=== PATIENT | male | born 1965 | race African-American/Black ===

== ENCOUNTER 2022-05-01 09:07 | Outpatient (CLI) | payer OTHER ==
[2022-05-01] MEDS ORDERED: Iopamidol-370 76% 500 ML 1 ML ONE (11:03)
== END 2022-05-01 09:08 | disposition home or self-care (01) ==
LOC: BICCT 09:07
PROVIDERS: ATTEND Physician Assistant
DX: R10.13 Epigastric pain (principal)
CPT/HCPCS: 74160; 82565